=== PATIENT | female | born 1970 | race Caucasian/White ===

== ENCOUNTER 2018-01-18 12:37 | Emergency (ER) | payer OTHER ==
[~2018-01-18] VITALS: Ht 167.6 cm; Wt 67.6 kg
[2018-01-18] MEDS ORDERED: ONDANSETRON 2MG/ML, 2ML IVPush ONE (13:30)
[2018-01-18] MEDS ORDERED: SODIUM CHLORIDE 0.9% 1,000ML IVBOLUS ONE (13:30)
[2018-01-18] MEDS ORDERED: SODIUM CHLORIDE FLUSH 10ML SYR IVF ONE (13:30)
[2018-01-18] MEDS ORDERED: ONDANSETRON 2MG/ML, 2ML ONE (13:58)
[2018-01-18 14:07] VITALS: BP 129/84
[2018-01-18] MEDS ORDERED: MIDAZOLAM 1 MG/ML, 2ML ONE ×2 (17:26→18:05)
[2018-01-18] MEDS ORDERED: FENTANYL PF 100 MCG/2ML ONE ×2 (17:26→18:06)
== END 2018-01-18 19:04 | disposition home or self-care (01) ==
LOC: ED 16:01
DX: T18.128A Food in esophagus causing other injury, initial encounter (principal); X58.XXXA Exposure to other specified factors, initial encounter; Y93.89 Activity, other specified; Y92.89 Other specified places as the place of occurrence of the external cause; Y99.8 Other external cause status
CPT/HCPCS: 43247; 96374; 99284; J2405; J7030